=== PATIENT | female | born 1965 ===

== ENCOUNTER 2017-05-29 06:54 | Day surgery (SDC) | payer OTHER ==
[2017-05-28 13:25] VITALS: BMI 26.2
[2017-05-29] MEDS ORDERED: Lactated Ringer's 1,000 ML IV ONE (08:13)
--- NOTE | 2017-05-29 08:13 | CP.SDSHP ---
Same Day Surgery H & P - History Proposed Procedure: COLONSCOPY Pre-Op Diagnosis: SEE NOTES - Previous Medical/Surgical History Cardiac: Hypertension Misc: Other - Allergies Allergies: Allergies Sulfa (Sulfonamide Antibiotics) Allergy (Intermediate, Verified 05/29/17 07:31) RASH ITCHING - Physical Exam General Appearance: N Vital Signs: Vital Signs 05/29/17 07:33 Temperature 97.8 F Pulse Rate 81 Respiratory 20 Rate Blood Pressure 130/82 O2 Sat by Pulse 99 Oximetry Mental Status: Alert & Oriented x3 Neuro: WNL Heart: Other Lungs: WNL GI: WNL - {Optional Preform as Required} Breast: WNL Abdomen: Other Rectal: WNL Integument: WNL : WNL Ortho: Other ENT: WNL - Impression Pt. Evaluated Today:Candidate for Anesthesia & Procedure: Yes - Date & Time Time: 08:13 Short Stay Discharge - Short Stay Discharge Admitting Diagnosis/Reason for Visit: ENCOUNTER FOR SCREENING FOR MALIGNANT NEOPLASM OF Disposition: HOME/ ROUTINE
[2017-05-29] MEDS ORDERED: Propofol 10 mg/ml Inj (20 ML) ONE (08:14)
[2017-05-29 08:49] VITALS: TEMP 98.1; O2SAT 100
[2017-05-29] MEDS ORDERED: Belladonna-Phenobarbital PO ONE (08:55)
[2017-05-29 09:34] VITALS: BP 103/64; PULSE 65; RESP 16
== END 2017-05-29 10:50 | disposition home or self-care (01) ==
LOC: C.ENDO 06:54
PROVIDERS: ATTEND Specialist
DX: Z12.11 Encounter for screening for malignant neoplasm of colon (principal); K57.30 Diverticulosis of large intestine without perforation or abscess without bleeding; K52.9 Noninfective gastroenteritis and colitis, unspecified; I10 Essential (primary) hypertension; K64.8 Other hemorrhoids
CPT/HCPCS: 45380; 88305; J2704; J7120